=== PATIENT | male | born 1995 | race Hispanic/Latino ===

== ENCOUNTER 2018-12-16 09:03 | Emergency (ER) | payer BC | END 2018-12-16 09:25 | disposition home or self-care (01) | LOC: SCSER 09:03 | DX: I10 Essential (primary) hypertension (principal); D64.9 Anemia, unspecified; Z79.899 Other long term (current) drug therapy | CPT/HCPCS: 99284 ==

== ENCOUNTER 2022-12-25 05:11 | Emergency (ER) | payer BC, SELFPAY ==
[2022-12-25] MEDS ORDERED: predniSONE 20 MG TAB ONE (06:03)
[2022-12-25] MEDS ORDERED: diphenhydrAMINE 25 MG CAP ONE (06:03)
== END 2022-12-25 06:22 | disposition home or self-care (01) ==
LOC: ERS 05:11
DX: R21 Rash and other nonspecific skin eruption (principal)
CPT/HCPCS: 99282; J7512